=== PATIENT | female | born 1975 | race Asian ===

== ENCOUNTER 2018-01-07 11:43 | Emergency (ER) | payer MEDICAID ==
[~2018-01-07] VITALS: Ht 167.6 cm; Wt 54.4 kg
[2018-01-07 12:03] VITALS: BP 100/77; Ht 167.6 cm; Wt 54.4 kg
== END 2018-01-07 12:45 | disposition left against medical advice (07) ==
LOC: ED 11:43
DX: Z53.21 Procedure and treatment not carried out due to patient leaving prior to being seen by health care provider (principal)